=== PATIENT | male | born 1935 | race Caucasian/White ===

== ENCOUNTER 2023-08-21 10:03 | Inpatient (IN) ==
[2023-08-21] MEDS ORDERED: IOPAMIDOL 100 ML BOTTLE IV ONE ×2 (10:04→18:52)
[2023-08-21] MEDS: HYDROmorphone 0.5 MG/0.5 ML SYRINGE IV PRN (10:48)
[2023-08-21] MEDS: ONDANSETRON 4 MG/2 ML VIAL IV ONE (10:51)
[2023-08-21] MEDS: 0.9 % SODIUM CHLORIDE 2,190 ML IV ONE (10:51)
[2023-08-21] MEDS: DIAZEPAM 10 MG/2 ML SYRINGE IV ONE (10:52)
[2023-08-21 11:18] LABS: ALT/SGPT 19 U/L (<40); AST/SGOT 29 U/L (<40); Albumin 4.1 gm/dL (3.2-5.2); Albumin/Globulin Ratio 1.5 (1.0-2.3); Alkaline Phosphatase 61 U/L (39-117); Bilirubin,Total 1.3 mg/dL (0.1-1.0); Blood Urea Nitrogen 26 mg/dL (8-23); Calcium 9.6 mg/dL (8.6-10.4); Carbon Dioxide 22 mmol/L (22-30); Chloride 95 mmol/L (96-108); Globulin 2.7 gm/dL (2.2-3.7); Glomerular Filtration Rate 50; Glucose 109 mg/dL (70-105)
[2023-08-21 11:26] LABS: Appearance,Urine Clear (Clear); Bilirubin,Urine Negative (Negative); Color,Urine Yellow; Culture Indicated,Urine No; Glucose,Urine (UA) Negative (Negative); Ketones,Urine Negative (Negative); Leukocyte Esterase,Urine Negative /uL (Negative); Nitrate,Urine Negative (Negative); PH,Urine 6.5 (5.0-9.0); Protein,Urine 30 mg/dL (Negative); Urine Blood Trace-lysed ery/mcL (Negative); Urine Hyaline Cast 1 /lph (0-2); Urine RBC 0 /hpf (0-3); Urine Squamous Epithelial Cell 0 /hpf (0-4); Urine WBC 0 /hpf (0-4); Urobilinogen,Urine Normal
[2023-08-21 12:04] LABS: INR 1.1 (0.9-1.1); Prothrombin Time 15.2 sec (11.9-14.5)
[2023-08-21] MEDS: REMDESIVIR 200 MG in 0.9 % SODIUM CHLORIDE 250 ML IV ONE (13:39)
[2023-08-21] MEDS: DEXAMETHASONE 4 MG TABLET PO ONE (13:41)
[2023-08-21] MEDS: AMOXICILLIN 250 MG CAPSULE PO ONE (13:41)
[2023-08-21 13:48] LABS: Basophils # (Auto) 0 K/mcL (0.00-0.30); Basophils % (Auto) 0 % (0.0-2.0); Eosinophils # (Auto) 0 K/mcL (0.00-0.70); Eosinophils % (Auto) 0 % (0.0-7.0); Hematocrit 40.5 % (40.1-51.0); Hemoglobin 13.1 g/dL (13.7-17.5); Lymphocytes # (Auto) 1.03 K/mcL (1.50-4.80); Lymphocytes % (Auto) 11.8 % (15.5-49.0); Mean Cell Volume 107.7 fL (80.0-100.0); Mean Corpuscular HGB Conc 32.3 g/dL (31.0-36.0); Mean Platelet Volume 9.9 fL (8.8-12.5); Monocytes # (Auto) 0.49 K/mcL (0.10-0.90); Monocytes % (Auto) 5.6 % (1.0-12.0); Neutrophils % (Auto) 82.1 % (38.0-78.0); Platelet Count 118 K/mcL (140-440); RBC 3.76 M/mcL (4.63-6.08); WBC 8.7 K/mcL (4.5-11.0)
[2023-08-21] MEDS ORDERED: NITROGLYCERIN 0.4 MG TAB.SUBL SL PRN (13:49)
[2023-08-21] MEDS: cefTRIAXone 1 GM VIAL IV ONE (14:06)
[2023-08-21] MEDS: DEXAMETHASONE 10 MG/ML VIAL IV ONE (14:06)
[2023-08-21] MEDS: NON FORMULARY MEDICATION 1 DOSE MISCELL (Acetaminophen [Tylenol 8 Hour] 650 mg tablet exte PO SCH (14:16)
[2023-08-21] MEDS: ACETAMINOPHEN 650 MG/65 ML BAG IV ONE (15:36)
[2023-08-21] MEDS ORDERED: guaiFENesin/DEXTROMETHORPHAN 5ML UD CUP PO PRN (15:57)
[2023-08-21] MEDS ORDERED: IPRATROPIUM/ALBUTEROL 3 ML AMPUL.NEB NEB PRN (15:57)
[2023-08-21] MEDS ORDERED: traZODone HCL 50 MG TABLET PO PRN (15:57)
[2023-08-21] MEDS: 0.9 % SODIUM CHLORIDE 1,000 ML IV SCH (16:34)
[2023-08-21] MEDS: REMDESIVIR 100 MG in 0.9 % SODIUM CHLORIDE 250 ML IV SCH (16:58)
[2023-08-21] MEDS: AMOXICILLIN 250 MG CAPSULE PO SCH (19:37)
[2023-08-21] MEDS: KETOROLAC TROMETHAMINE 1 GTT BOTTLE OU SCH (19:38)
[2023-08-21] MEDS: DOCUSATE SODIUM 100 MG CAPSULE PO SCH (23:51)
[2023-08-21] MEDS: VITAMIN D3 25 MCG TABLET PO SCH (23:52)
[2023-08-21] MEDS: SENNOSIDES 1 TABLET PO SCH (23:52)
[2023-08-21] MEDS: 0.9 % SODIUM CHLORIDE 10 ML SYRINGE IV SCH (23:53)
[2023-08-22] MEDS: HYDROmorphone 1 MG/ML SYRINGE IV PRN (04:10)
[2023-08-22 06:47] LABS: Basophils # (Auto) 0.01 K/mcL (0.00-0.30); Basophils % (Auto) 0.1 % (0.0-2.0); Eosinophils # (Auto) 0 K/mcL (0.00-0.70); Eosinophils % (Auto) 0 % (0.0-7.0); Hematocrit 35.1 % (40.1-51.0); Hemoglobin 11.6 g/dL (13.7-17.5); Lymphocytes # (Auto) 0.29 K/mcL (1.50-4.80); Lymphocytes % (Auto) 2.2 % (15.5-49.0); Mean Cell Volume 108.3 fL (80.0-100.0); Monocytes # (Auto) 0.71 K/mcL (0.10-0.90); Monocytes % (Auto) 5.3 % (1.0-12.0); Neutrophils % (Auto) 91.9 % (38.0-78.0); Platelet Count 81 K/mcL (140-440); RBC 3.24 M/mcL (4.63-6.08); Red Cell Distribution Width 16.3 % (11.5-14.5); WBC 13.5 K/mcL (4.5-11.0)
[2023-08-22 07:02] LABS: ALT/SGPT 15 U/L (<40); AST/SGOT 30 U/L (<40); Albumin 3.5 gm/dL (3.2-5.2); Albumin/Globulin Ratio 1.7 (1.0-2.3); Alkaline Phosphatase 72 U/L (39-117); Bilirubin,Total 0.6 mg/dL (0.1-1.0); Blood Urea Nitrogen 31 mg/dL (8-23); Calcium 8.8 mg/dL (8.6-10.4); Carbon Dioxide 21 mmol/L (22-30); Chloride 99 mmol/L (96-108); Globulin 2.1 gm/dL (2.2-3.7); Glomerular Filtration Rate 50; Glucose 113 mg/dL (70-105)
[2023-08-22] MEDS: ATORVASTATIN 40 MG TABLET PO SCH (08:10)
[2023-08-22] MEDS: DEXAMETHASONE 4 MG TABLET PO SCH (08:10)
[2023-08-22] MEDS: FOLIC ACID 1 MG TABLET PO SCH (08:11)
[2023-08-22] MEDS: oxyCODONE IR 5 MG TABLET PO PRN (08:11)
[2023-08-22] MEDS: PANTOPRAZOLE 40 MG VIAL IV SCH (08:11)
[2023-08-22] MEDS ORDERED: FUROSEMIDE 40 MG TABLET PO SCH (09:00)
[2023-08-22] MEDS ORDERED: predniSONE 5 MG TABLET PO SCH (09:00)
[2023-08-22] MEDS: REMDESIVIR 100 MG in 0.9 % SODIUM CHLORIDE 250 ML IV SCH (09:58)
[2023-08-22] MEDS: cefTRIAXone 2 GM in DEXTROSE 5% IN WATER 50 ML IV SCH ×2 (10:38→11:27)
[2023-08-22] MEDS: ALLOPURINOL 100 MG TABLET PO SCH (12:39)
[2023-08-22] MEDS: FISH OIL 1,000 MG CAPSULE PO SCH (14:20)
[2023-08-22] MEDS: NALOXONE HCL 0.4 MG/ML VIAL IV PRN (16:59)
[2023-08-22] MEDS: NALOXONE HCL 0.4 MG/ML VIAL ONE (16:59)
[2023-08-23 06:33] LABS: Basophils # (Auto) 0 K/mcL (0.00-0.30); Basophils % (Auto) 0 % (0.0-2.0); Eosinophils # (Auto) 0 K/mcL (0.00-0.70); Eosinophils % (Auto) 0 % (0.0-7.0); Hematocrit 35.6 % (40.1-51.0); Hemoglobin 11.4 g/dL (13.7-17.5); Lymphocytes # (Auto) 0.39 K/mcL (1.50-4.80); Lymphocytes % (Auto) 3.4 % (15.5-49.0); Mean Cell Volume 109.5 fL (80.0-100.0); Mean Platelet Volume 10.2 fL (8.8-12.5); Monocytes # (Auto) 0.55 K/mcL (0.10-0.90); Monocytes % (Auto) 4.8 % (1.0-12.0); Neutrophils % (Auto) 91.5 % (38.0-78.0); Platelet Count 88 K/mcL (140-440); RBC 3.25 M/mcL (4.63-6.08); WBC 11.5 K/mcL (4.5-11.0)
[2023-08-23 06:53] LABS: ALT/SGPT 19 U/L (<40); AST/SGOT 33 U/L (<40); Albumin 3.3 gm/dL (3.2-5.2); Albumin/Globulin Ratio 1.6 (1.0-2.3); Alkaline Phosphatase 51 U/L (39-117); Bilirubin,Total 0.4 mg/dL (0.1-1.0); Blood Urea Nitrogen 43 mg/dL (8-23); Calcium 8.7 mg/dL (8.6-10.4); Carbon Dioxide 19 mmol/L (22-30); Chloride 98 mmol/L (96-108); Globulin 2.1 gm/dL (2.2-3.7); Glomerular Filtration Rate 45; Glucose 203 mg/dL (70-105)
[2023-08-23] MEDS: predniSONE 5 MG TABLET PO SCH (08:40)
[2023-08-23] MEDS: MAGNESIUM OXIDE 400 MG TABLET PO SCH (08:40)
[2023-08-23] MEDS: BENZOCAINE/MENTHOL 1 LOZENGE PO PRN (08:56)
[2023-08-24 07:58] LABS: Basophils # (Auto) 0 K/mcL (0.00-0.30); Basophils % (Auto) 0 % (0.0-2.0); Eosinophils # (Auto) 0 K/mcL (0.00-0.70); Eosinophils % (Auto) 0 % (0.0-7.0); Hematocrit 34.4 % (40.1-51.0); Hemoglobin 11.4 g/dL (13.7-17.5); Lymphocytes # (Auto) 0.55 K/mcL (1.50-4.80); Lymphocytes % (Auto) 4.8 % (15.5-49.0); Mean Cell Volume 105.5 fL (80.0-100.0); Mean Corpuscular HGB Conc 33.1 g/dL (31.0-36.0); Mean Platelet Volume 10.5 fL (8.8-12.5); Monocytes # (Auto) 0.67 K/mcL (0.10-0.90); Monocytes % (Auto) 5.8 % (1.0-12.0); Neutrophils % (Auto) 88.9 % (38.0-78.0); Platelet Count 95 K/mcL (140-440); RBC 3.26 M/mcL (4.63-6.08); Red Cell Distribution Width 15.6 % (11.5-14.5); WBC 11.5 K/mcL (4.5-11.0)
[2023-08-24 08:40] LABS: ALT/SGPT 20 U/L (<40); AST/SGOT 35 U/L (<40); Albumin 3.3 gm/dL (3.2-5.2); Albumin/Globulin Ratio 1.6 (1.0-2.3); Alkaline Phosphatase 46 U/L (39-117); Bilirubin,Total 0.4 mg/dL (0.1-1.0); Blood Urea Nitrogen 43 mg/dL (8-23); Calcium 8.8 mg/dL (8.6-10.4); Carbon Dioxide 22 mmol/L (22-30); Chloride 100 mmol/L (96-108); Globulin 2.1 gm/dL (2.2-3.7); Glomerular Filtration Rate 61; Glucose 146 mg/dL (70-105)
[2023-08-24] MEDS: POLYETHYLENE GLYCOL 3350 17 GM PACKET PO PRN (15:36)
[2023-08-24] MEDS: KETOROLAC TROMETHAMINE 1 GTT BOTTLE OU SCH (20:25)
[2023-08-25 07:11] LABS: Basophils # (Auto) 0.01 K/mcL (0.00-0.30); Basophils % (Auto) 0.1 % (0.0-2.0); Eosinophils # (Auto) 0 K/mcL (0.00-0.70); Eosinophils % (Auto) 0 % (0.0-7.0); Hematocrit 35.2 % (40.1-51.0); Hemoglobin 11.8 g/dL (13.7-17.5); Lymphocytes # (Auto) 0.85 K/mcL (1.50-4.80); Lymphocytes % (Auto) 7.7 % (15.5-49.0); Mean Corpuscular HGB Conc 33.5 g/dL (31.0-36.0); Mean Platelet Volume 11.2 fL (8.8-12.5); Monocytes # (Auto) 0.77 K/mcL (0.10-0.90); Neutrophils % (Auto) 84.6 % (38.0-78.0); Platelet Count 106 K/mcL (140-440); RBC 3.32 M/mcL (4.63-6.08); Red Cell Distribution Width 15.6 % (11.5-14.5)
[2023-08-25 07:42] LABS: ALT/SGPT 22 U/L (<40); AST/SGOT 32 U/L (<40); Albumin 3.3 gm/dL (3.2-5.2); Albumin/Globulin Ratio 1.7 (1.0-2.3); Alkaline Phosphatase 59 U/L (39-117); Bilirubin,Total 0.4 mg/dL (0.1-1.0); Blood Urea Nitrogen 40 mg/dL (8-23); Carbon Dioxide 26 mmol/L (22-30); Chloride 100 mmol/L (96-108); Glomerular Filtration Rate 61; Glucose 106 mg/dL (70-105)
[2023-08-25] MEDS: HYDROmorphone 1 MG/ML SYRINGE IV PRN (08:16)
[2023-08-25] MEDS: ENOXAPARIN 40 MG/0.4 ML SYRINGE SQ ONE (12:45)
[2023-08-26] MEDS: ONDANSETRON 4 MG/2 ML VIAL IV PRN (01:25)
[2023-08-26 07:25] LABS: ALT/SGPT 22 U/L (<40); AST/SGOT 28 U/L (<40); Albumin 3.4 gm/dL (3.2-5.2); Albumin/Globulin Ratio 1.6 (1.0-2.3); Alkaline Phosphatase 69 U/L (39-117); Bilirubin,Total 0.4 mg/dL (0.1-1.0); Blood Urea Nitrogen 34 mg/dL (8-23); Carbon Dioxide 25 mmol/L (22-30); Chloride 101 mmol/L (96-108); Globulin 2.1 gm/dL (2.2-3.7); Glomerular Filtration Rate 77; Glucose 90 mg/dL (70-105)
[2023-08-26] MEDS ORDERED: PROPOFOL 200 MG/20 ML VIAL IV ONE (07:36)
[2023-08-26] MEDS ORDERED: GLYCOPYRROLATE 0.2 MG/ML VIAL IV ONE (07:36)
[2023-08-26] MEDS ORDERED: PHENYLephrine 1 MG/10 ML SYRINGE (ANEST) ONE (07:36)
[2023-08-26] MEDS ORDERED: ONDANSETRON 4 MG/2 ML VIAL ONE (07:36)
[2023-08-26] MEDS ORDERED: DEXAMETHASONE 10 MG/ML VIAL ONE (07:36)
[2023-08-26] MEDS ORDERED: fentaNYL 100 MCG/2 ML VIAL ONE (07:37)
[2023-08-26] MEDS ORDERED: SUCCINYLCHOLINE 200 MG/10 ML VIAL IV ONE (07:41)
[2023-08-26 08:34] LABS: Basophils # (Auto) 0.01 K/mcL (0.00-0.30); Basophils % (Auto) 0.1 % (0.0-2.0); Eosinophils # (Auto) 0.12 K/mcL (0.00-0.70); Eosinophils % (Auto) 1.2 % (0.0-7.0); Hematocrit 39.8 % (40.1-51.0); Hemoglobin 12.9 g/dL (13.7-17.5); Lymphocytes # (Auto) 1.38 K/mcL (1.50-4.80); Mean Cell Volume 107.9 fL (80.0-100.0); Mean Corpuscular HGB Conc 32.4 g/dL (31.0-36.0); Monocytes # (Auto) 0.92 K/mcL (0.10-0.90); Monocytes % (Auto) 9.4 % (1.0-12.0); Neutrophils % (Auto) 74.8 % (38.0-78.0); Platelet Count 120 K/mcL (140-440); RBC 3.69 M/mcL (4.63-6.08); Red Cell Distribution Width 15.8 % (11.5-14.5); WBC 9.8 K/mcL (4.5-11.0)
[2023-08-26] MEDS: ceFAZolin 2 GM in DEXTROSE 5% IN WATER 50 ML IV SCH (08:40)
[2023-08-26] MEDS ORDERED: ROCURONIUM 10 MG/ML ML IV ONE (08:47)
[2023-08-26] MEDS ORDERED: ceFAZolin 1 GM VIAL ONE (08:47)
[2023-08-26] MEDS ORDERED: SUGAMMADEX SODIUM 200 MG/2 ML VIAL IV ONE (08:48)
[2023-08-26] MEDS ORDERED: HYDROmorphone 1 MG/ML SYRINGE ONE ×2 (08:51→09:41)
[2023-08-26] MEDS ORDERED: TRANEXAMIC ACID 1,000 MG/10 ML VIAL ONE (08:52)
[2023-08-26] MEDS ORDERED: PHENYLEPHRINE 10 MG/ML VIAL ONE (09:01)
[2023-08-26] MEDS ORDERED: VASOPRESSIN 20 UNIT/ML VIAL ONE (10:15)
[2023-08-26] MEDS: THROMBIN (BOVINE) 5,000 UNIT VIAL TOPICAL ONE (10:18)
[2023-08-26] MEDS ORDERED: methylPREDNISolone SOD SUCC 125 MG/2 ML VIAL ONE (10:50)
[2023-08-26] MEDS ORDERED: ONDANSETRON 4 MG/2 ML VIAL IV PRN (11:35)
[2023-08-26] MEDS ORDERED: IPRATROPIUM/ALBUTEROL 3 ML AMPUL.NEB NEB PRN (11:35)
[2023-08-26] MEDS ORDERED: HYDROcodone/APAP 10/325MG TABLET PO PRN (12:09)
[2023-08-26] MEDS ORDERED: HYDROCODONE/APAP 7.5/325MG TABLET PO PRN (12:09)
[2023-08-26] MEDS ORDERED: BENZOCAINE/MENTHOL 1 LOZENGE PO PRN (12:09)
[2023-08-26] MEDS: BUPIVACAINE 0.25% 50 ML VIAL IJ ONE (12:10)
[2023-08-26] MEDS: ACETAMINOPHEN 1,000 MG/100 ML BAG IV ONE (12:22)
[2023-08-26] MEDS: fentaNYL 100 MCG/2 ML VIAL IV PRN (12:38)
[2023-08-26] MEDS: LACTATED RINGERS 1,000 ML IV SCH (14:14)
[2023-08-26] MEDS: 0.9 % SODIUM CHLORIDE 10 ML SYRINGE IV SCH (15:19)
[2023-08-26] MEDS: ceFAZolin 1 GM VIAL IV SCH (16:25)
[2023-08-26] MEDS: oxyCODONE IR 5 MG TABLET PO PRN (16:26)
[2023-08-27] MEDS: METHOCARBAMOL 750 MG TABLET PO PRN (01:15)
[2023-08-27 06:52] LABS: Basophils # (Auto) 0.01 K/mcL (0.00-0.30); Basophils % (Auto) 0.1 % (0.0-2.0); Eosinophils # (Auto) 0 K/mcL (0.00-0.70); Eosinophils % (Auto) 0 % (0.0-7.0); Hemoglobin 12.1 g/dL (13.7-17.5); Lymphocytes # (Auto) 0.94 K/mcL (1.50-4.80); Lymphocytes % (Auto) 8.5 % (15.5-49.0); Mean Cell Volume 105.7 fL (80.0-100.0); Mean Corpuscular HGB Conc 32.7 g/dL (31.0-36.0); Mean Platelet Volume 10.5 fL (8.8-12.5); Monocytes # (Auto) 0.79 K/mcL (0.10-0.90); Monocytes % (Auto) 7.2 % (1.0-12.0); Platelet Count 119 K/mcL (140-440); Red Cell Distribution Width 15.7 % (11.5-14.5)
[2023-08-27 08:02] LABS: ALT/SGPT 20 U/L (<40); AST/SGOT 27 U/L (<40); Albumin 3.4 gm/dL (3.2-5.2); Albumin/Globulin Ratio 1.6 (1.0-2.3); Alkaline Phosphatase 61 U/L (39-117); Bilirubin,Total 0.4 mg/dL (0.1-1.0); Blood Urea Nitrogen 32 mg/dL (8-23); Calcium 9.1 mg/dL (8.6-10.4); Carbon Dioxide 27 mmol/L (22-30); Chloride 96 mmol/L (96-108); Globulin 2.1 gm/dL (2.2-3.7); Glomerular Filtration Rate 61; Glucose 157 mg/dL (70-105)
[2023-08-27] MEDS: ACETAMINOPHEN 325 MG TABLET PO PRN (13:46)
[2023-08-28 06:48] LABS: Basophils # (Auto) 0.02 K/mcL (0.00-0.30); Basophils % (Auto) 0.2 % (0.0-2.0); Eosinophils # (Auto) 0.06 K/mcL (0.00-0.70); Eosinophils % (Auto) 0.7 % (0.0-7.0); Hematocrit 34.9 % (40.1-51.0); Hemoglobin 11.4 g/dL (13.7-17.5); Lymphocytes # (Auto) 0.94 K/mcL (1.50-4.80); Lymphocytes % (Auto) 10.8 % (15.5-49.0); Mean Cell Volume 106.4 fL (80.0-100.0); Mean Corpuscular HGB Conc 32.7 g/dL (31.0-36.0); Mean Platelet Volume 10.6 fL (8.8-12.5); Monocytes # (Auto) 0.71 K/mcL (0.10-0.90); Monocytes % (Auto) 8.2 % (1.0-12.0); Neutrophils % (Auto) 79.3 % (38.0-78.0); Platelet Count 129 K/mcL (140-440); RBC 3.28 M/mcL (4.63-6.08); WBC 8.7 K/mcL (4.5-11.0)
[2023-08-28] MEDS: PANTOPRAZOLE 40 MG TABLET PO SCH (07:31)
[2023-08-28 07:54] LABS: ALT/SGPT 15 U/L (<40); AST/SGOT 24 U/L (<40); Albumin 3.1 gm/dL (3.2-5.2); Albumin/Globulin Ratio 1.5 (1.0-2.3); Alkaline Phosphatase 55 U/L (39-117); Bilirubin,Total 0.5 mg/dL (0.1-1.0); Blood Urea Nitrogen 33 mg/dL (8-23); Calcium 8.7 mg/dL (8.6-10.4); Carbon Dioxide 26 mmol/L (22-30); Chloride 97 mmol/L (96-108); Globulin 2.1 gm/dL (2.2-3.7); Glomerular Filtration Rate 68; Glucose 117 mg/dL (70-105)
[2023-08-28] MEDS: ENOXAPARIN 40 MG/0.4 ML SYRINGE SQ SCH (09:34)
[2023-08-28] MEDS: HYDROmorphone 0.5 MG/0.5 ML SYRINGE IV PRN (10:52)
[2023-08-28] MEDS: METHOTREXATE SODIUM 2.5 MG TABLET PO SCH (13:08)
[2023-08-29 06:21] LABS: Basophils # (Auto) 0.02 K/mcL (0.00-0.30); Basophils % (Auto) 0.3 % (0.0-2.0); Eosinophils % (Auto) 1.3 % (0.0-7.0); Hematocrit 35.7 % (40.1-51.0); Hemoglobin 11.7 g/dL (13.7-17.5); Lymphocytes # (Auto) 0.88 K/mcL (1.50-4.80); Lymphocytes % (Auto) 11.2 % (15.5-49.0); Mean Cell Volume 106.3 fL (80.0-100.0); Mean Corpuscular HGB Conc 32.8 g/dL (31.0-36.0); Mean Platelet Volume 10.3 fL (8.8-12.5); Monocytes # (Auto) 0.64 K/mcL (0.10-0.90); Monocytes % (Auto) 8.2 % (1.0-12.0); Neutrophils % (Auto) 78.4 % (38.0-78.0); Platelet Count 141 K/mcL (140-440); RBC 3.36 M/mcL (4.63-6.08); WBC 7.8 K/mcL (4.5-11.0)
[2023-08-29 06:44] LABS: ALT/SGPT 13 U/L (<40); AST/SGOT 24 U/L (<40); Albumin 3.1 gm/dL (3.2-5.2); Albumin/Globulin Ratio 1.3 (1.0-2.3); Alkaline Phosphatase 55 U/L (39-117); Bilirubin,Total 0.6 mg/dL (0.1-1.0); Blood Urea Nitrogen 29 mg/dL (8-23); Calcium 8.9 mg/dL (8.6-10.4); Carbon Dioxide 29 mmol/L (22-30); Chloride 97 mmol/L (96-108); Globulin 2.3 gm/dL (2.2-3.7); Glomerular Filtration Rate 68; Glucose 112 mg/dL (70-105)
== END 2023-08-29 17:25 | DRG 518 ==
LOC: ED 10:03 → MEDSUR 16:00
PROVIDERS: ADMIT Internal Medicine; ATTEND Student in an Organized Health Care Education/Training Program
PROC: [UNRECOGNIZED PROCEDURE] (2023-08-26 08:18)

== ENCOUNTER 2024-04-06 21:45 | Inpatient (IN) ==
[2024-04-06 23:37] LABS: Basophils # (Auto) 0.01 K/mcL (0.00-0.30); Basophils % (Auto) 0.2 % (0.0-2.0); Eosinophils # (Auto) 0.07 K/mcL (0.00-0.70); Eosinophils % (Auto) 1.2 % (0.0-7.0); Hematocrit 33.8 % (40.1-51.0); Hemoglobin 11.2 g/dL (13.7-17.5); Lymphocytes # (Auto) 1.61 K/mcL (1.50-4.80); Lymphocytes % (Auto) 26.7 % (15.5-49.0); Mean Cell Volume 111.6 fL (80.0-100.0); Mean Corpuscular HGB Conc 33.1 g/dL (31.0-36.0); Monocytes # (Auto) 0.52 K/mcL (0.10-0.90); Monocytes % (Auto) 8.6 % (1.0-12.0); Neutrophils % (Auto) 62.5 % (38.0-78.0); Platelet Count 129 K/mcL (140-440); RBC 3.03 M/mcL (4.63-6.08); Red Cell Distribution Width 15.3 % (11.5-14.5)
[2024-04-07] LABS: ALT/SGPT 23 U/L (<40); AST/SGOT 27 U/L (<40); Albumin 4.1 gm/dL (3.2-5.2); Albumin/Globulin Ratio 1.9 (1.0-2.3); Alkaline Phosphatase 60 U/L (39-117); Bilirubin,Total 0.6 mg/dL (0.1-1.0); Blood Urea Nitrogen 48 mg/dL (8-23); Calcium 9.6 mg/dL (8.6-10.4); Carbon Dioxide 25 mmol/L (22-30); Chloride 100 mmol/L (96-108); Globulin 2.2 gm/dL (2.2-3.7); Glomerular Filtration Rate 38; Glucose 118 mg/dL (70-105); Sodium 138 mmol/L (133-145)
[2024-04-07] MEDS ORDERED: ONDANSETRON 4 MG/2 ML VIAL IV PRN (00:28)
[2024-04-07] MEDS ORDERED: morphine 2 MG/ML VIAL IV PRN (00:28)
[2024-04-07] MEDS: 0.9 % SODIUM CHLORIDE 1,000 ML IV SCH (02:24)
[2024-04-07 06:34] LABS: Appearance,Urine Clear (Clear); Bilirubin,Urine Negative (Negative); Color,Urine Yellow; Glucose,Urine (UA) Negative (Negative); Ketones,Urine Negative (Negative); Leukocyte Esterase,Urine Negative /uL (Negative); Nitrate,Urine Negative (Negative); Protein,Urine Negative (Negative); Specific Gravity,Urine 1.015 (1.000-1.035); Urine Blood Negative ery/mcL (Negative); Urobilinogen,Urine Normal
[2024-04-07] MEDS ORDERED: ACETAMINOPHEN 325 MG TABLET PO PRN (08:11)
[2024-04-07] MEDS ORDERED: MAGNESIUM SULFATE 2 GM/50 ML BAG IV PRN (08:11)
[2024-04-07] MEDS ORDERED: POLYETHYLENE GLYCOL 3350 17 GM PACKET PO PRN (08:11)
[2024-04-07] MEDS ORDERED: SENNOSIDES 1 TABLET PO PRN (08:11)
[2024-04-07] MEDS ORDERED: POTASSIUM CHLORIDE 20 MEQ TABLET PO PRN ×2 (08:11)
[2024-04-07] MEDS ORDERED: IPRATROPIUM/ALBUTEROL 3 ML AMPUL.NEB NEB PRN (08:11)
[2024-04-07] MEDS ORDERED: POTASSIUM CHLORIDE 40 MEQ in DEXTROSE 5% IN WATER 500 ML IV PRN (08:11)
[2024-04-07] MEDS ORDERED: METOCLOPRAMIDE 10 MG/2 ML VIAL IV PRN (08:11)
[2024-04-07] MEDS ORDERED: NITROGLYCERIN 0.4 MG TAB.SUBL SL PRN (08:18)
[2024-04-07] MEDS: ATORVASTATIN 40 MG TABLET PO SCH (08:54)
[2024-04-07] MEDS: ALLOPURINOL 300 MG TABLET PO SCH (08:54)
[2024-04-07] MEDS: predniSONE 5 MG TABLET PO SCH (08:54)
[2024-04-07] MEDS: HYDROcodone/APAP 5/325MG TABLET PO PRN (08:54)
[2024-04-07] MEDS: TAMSULOSIN 0.4 MG CAPSULE PO SCH (08:55)
[2024-04-07] MEDS: DOCUSATE SODIUM 100 MG CAPSULE PO SCH (08:55)
[2024-04-07] MEDS: OMEPRAZOLE 20 MG CAPSULE PO SCH (08:55)
[2024-04-07] MEDS: 0.9 % SODIUM CHLORIDE 10 ML SYRINGE IV SCH (13:19)
[2024-04-07] MEDS: APIXABAN 2.5 MG TABLET PO SCH (20:36)
[2024-04-08 06:28] LABS: ALT/SGPT 18 U/L (<40); AST/SGOT 24 U/L (<40); Albumin 3.7 gm/dL (3.2-5.2); Albumin/Globulin Ratio 1.9 (1.0-2.3); Alkaline Phosphatase 52 U/L (39-117); Bilirubin,Direct 0.5 mg/dL (<0.3); Blood Urea Nitrogen 32 mg/dL (8-23); Calcium 9.4 mg/dL (8.6-10.4); Carbon Dioxide 25 mmol/L (22-30); Chloride 103 mmol/L (96-108); Glomerular Filtration Rate 54; Glucose 95 mg/dL (70-105); Lactate Dehydrogenase 246 U/L (135-225); Phosphorous 3.5 mg/dL (2.5-4.5); Sodium 139 mmol/L (133-145); Triglycerides 48 mg/dL (<150); Uric Acid 4.2 mg/dL (2.5-8.0)
[2024-04-08] MEDS ORDERED: FUROSEMIDE 20 MG TABLET PO SCH (09:00)
[2024-04-08] MEDS: METHOTREXATE SODIUM 2.5 MG TABLET PO SCH (11:15)
[2024-04-08] MEDS: DEXAMETHASONE BOTH EYES SCH (12:54)
[2024-04-08] MEDS: POLYMYXIN B BOTH EYES SCH (12:54)
[2024-04-08] MEDS: NEOMYCIN BOTH EYES SCH (12:54)
[2024-04-09] MEDS: FOLIC ACID 1 MG TABLET PO SCH (09:00)
[2024-04-09] MEDS: FUROSEMIDE 20 MG TABLET PO SCH (09:01)
[2024-04-09 12:42] VITALS: TEMP 98.3; O2SAT 97
== END 2024-04-09 10:21 | DRG 536 ==
LOC: ED 21:45 → MEDSUR 04-07 00:45
PROVIDERS: ADMIT Internal Medicine; ATTEND Internal Medicine